=== PATIENT | female | born 1990 | race Caucasian/White ===

== ENCOUNTER 2016-07-08 00:01 | Emergency (ER) | payer BC ==
--- NOTE | 2016-07-08 00:48 | ED CLINICAL REPORT ---
Clinical Report - Physicians/Mid Levels [facility] [address] [place] [address] 07/08/2016 0:02 Patient: GRETCHEN RUBY Time Seen: 00:17. Arrived- By private vehicle. Historian- patient. HISTORY OF PRESENT ILLNESS Chief Complaint: BACK PAIN. It is described as being severe and in the area of the lower lumbar spine and radiating to the left lower extremity. The quality is noted to be aching, "pain" and similar to prior episodes. Onset- about 10 days ago and it is still present. It was abrupt in onset and has been constant. No bladder dysfunction, bowel dysfunction, sensory loss or motor loss. Patient denies a recent injury. Similar symptoms previously: Evaluation/treatment: x-rays and CT. Recent medical care: The patient was seen recently at another facility in a clinic. Seen for similar symptoms. Diagnosis: back pain. ( she said that she had plain x-rays and CT scan done at the [facility] and these were reportedly negative this past week.). REVIEW OF SYSTEMS No chills, fever, sweats, calf pain or chest pain. No cough, difficulty breathing, pedal edema, palpitations or abdominal pain. No constipation, diarrhea, nausea, vomiting or urinary problems. All systems otherwise negative, except as recorded above. PAST HISTORY Problems: Diabetes Mellitus. Atypical Chest Pain. Abnormal Liver Function Test. Chest Wall Pain. Additional Surgeries: Adenoidectomy. Back Surgery. Tonsillectomy. Tympanostomy Tubes. Medications: MetFORMIN HCl Oral. Hydrocodone-Acetaminophen Oral (has 2 tabs left). PredniSONE Oral (finished yesterday). 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 Methocarbamol Oral. Allergies: None. SOCIAL HISTORY Never smoker. Occasional alcohol use. No drug use. FAMILY HISTORY Denies family medical history. ADDITIONAL NOTES The nursing notes have been reviewed. PHYSICAL EXAM Vital Signs: 07/08/2016 00:11 BP: 154/94. HR: 95. RR: 16. O2 saturation: 99%. Temp: 98.4 F. Pain level now: 11/16. Have been reviewed. Appearance: Appears to be in pain. She is morbidly obese. Eyes: Pupils equal, round and reactive to light. ENT: Pharynx normal. Neck: Normal inspection. Neck nontender. No muscle spasm in the neck. Painless ROM. No vertebral tenderness. CVS: Heart sounds normal. Pulses normal. Respiratory: No respiratory distress. Breath sounds normal. Abdomen: No visible injury. Soft and nontender. Bowel sounds normal. No organomegaly. No mass. Back: Muscle spasm of the back. Severely limited ROM in the back- in the lumbar spine: decreased flexion, extension, right lateral bending, left lateral bending and rotation to the right and left. No vertebral point tenderness or CVA tenderness. (Well-healed lumbar surgical scar). Skin: Skin warm and dry. Normal skin color. Normal skin turgor. Extremities: Extremities exhibit normal ROM. Extremities nontender. No calf tenderness. Neuro: No motor deficit. No sensory deficit. PROGRESS AND PROCEDURES Course of Care: Patient is stable. Patient/family counseled. Old medical records ordered. Old records unavailable. Disposition: Discharged. Condition: stable. CLINICAL IMPRESSION Nontraumatic lumbar back pain. INSTRUCTIONS No driving or operating machinery while taking medication. No lifting greater than 5 lbs, no bending or stooping or no prolonged sitting. (Talk with your doctor about whether or not you would benefit from an MRI as discussed). Your Current Medications: STOP TAKING THE FOLLOWING MEDICATIONS: Hydrocodone-Acetaminophen Oral : has 2 tabs left. Methocarbamol Oral. CONTINUE TAKING THE FOLLOWING MEDICATIONS: Ibuprofen Oral : Tablet 800 mg, Last: 6.5hrs TESTING TECH. MetFORMIN HCl Oral. Prescription Medications: Valium 5 mg: Take 1 tablet orally every 8 hours as needed for muscle spasm. Dispense fifteen (15). No refills. Substitution is permissible. Follow-up: Follow up with your doctor tomorrow. Understanding of the discharge instructions verbalized by patient. (Electronically signed by Henrique Puga MD 07/08/2016 1:20)
--- NOTE | 2016-07-08 00:48 | ED NURSING NOTES ---
Clinical Report - Nurses [facility] [address] [place] [address] 07/08/2016 0:02 Patient: GRETCHEN RUBY TRIAGE Triage time 00:13. Chief Complaint: BACK PAIN. --00:19 Dipti Latham R.N. 00:11 07/08/16. BP: 154/94. HR: 95. RR: 16. O2 saturation: 99%. Temp: 98.4 F. Pain level now: 11/16. --00:19 Dipti Latham R.N. Weight: 122.9 kg stated. Height/Length: 70 inches Per Patient. BMI: 38.9. --00:17 Dipti Latham R.N. Medications Methocarbamol Oral. --00:15 Dipti Latham R.N. 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 --00:15 Dipti Latham R.N. PredniSONE Oral (finished yesterday). --00:15 Dipti Latham R.N. Hydrocodone-Acetaminophen Oral (has 2 tabs left). --00:16 Dipti Latham R.N. MetFORMIN HCl Oral. --00:16 Dipti Latham R.N. The following entry was struck and corrected by Dipti Latham R.N., 00:31 (07/08/16) Reason for correction - other(correction). <<STRICKEN ENTRY-- Ibuprofen Oral (Tablet 800 mg). --00:15 Dipti Latham R.N. --END STRIKE>>. Allergies None. --00:17 Dipti Latham R.N. History Arrived by private vehicle. Historian: patient. Unaccompanied. Primary physician (Reuben Mcginnis). ( was seen last night and one week ago for same issue. Xray and CT done yesterday. pt told if no improvement, to return.). Onset. (about 1 1/2 weeks ago). She has had trouble walking. No history of recent trauma. SOCIAL HX: Never smoker. Occasional alcohol use. No drug use. --00:19 Dipti Latham R.N. PROBLEMS: Diabetes Mellitus. Abnormal Liver Function Test. --00:18 Dipti Latham R.N. ADDITIONAL SURGERIES: Adenoidectomy. Tonsillectomy. Tympanostomy Tubes. --00:18 Dipti Latham R.N. Back Surgery. --00:18 Dipti Latham R.N. PHYSICAL ASSESSMENT To room via wheelchair. GENERAL / NEURO / PSYCH: Alert. Oriented X 4. Appears in no acute distress. RESPIRATORY: Respirations not labored. CVS: Capillary refill less than 2 seconds. --00:19 Dipti Latham R.N. NURSING PROGRESS NOTES Head of bed elevated. Two patient identifiers checked. Call light placed in reach. Side rails up x 1. Bed placed in lowest position. Brakes of bed on. --00: Dipti Latham R.N. Patient ready for evaluation- chart flagged. --00:19 Dipti Latham R.N. 00:30 07/08/2016 Toradol (Ketorolac Tromethamine) IM 60 mg given. Given in the left ventral gluteus. Allergies verified and confirmed 5 rights. --00:30 Dipti Latham R.N. 00:58 07/08/2016 Toradol IM Response: no adverse reaction symptoms have improved the patient feels better. --01:13 Nicole Le R.N. DISPOSITION / DISCHARGE Departure time: 0110 AM. Condition at departure: stable. The goals identified in the patient's plan of care were met. No learning barriers present. Discharge instructions provided and reviewed with the patient. Reviewed warnings (lifting and side effects of valium). Reviewed medication(s) side effects, precautions, dosing and course information. Prescription(s) given to the patient. Reviewed need for increased fluid intake. Activity restrictions (light lifting and rest) reviewed. Work note given. Verbalized understanding. Written instructions provided in Mauritian. ( pt offered a valium before leaving since was here to drive her, refused "afraid, rather be home and take it". All discharge instructions reviewed and all concerns addressed. VSS). The patient was discharged by the physician. She was discharged home and accompanied by spouse. She left the Emergency Department ambulatory and via private vehicle. Spouse driving. FALL RISK ASSESSMENT: Fall risk assessment completed. No fall risk identified. TELMA COMA SCORE: Telma Coma Scale: 15- eyes open spontaneously (4); best verbal response- oriented x 4 (5); best motor response- obeys commands (6). --01:13 Nicole Le R.N. 01:09 07/08/16. BP: 115/82 (regular adult cuff) taken on the left arm, via an automated monitor, while lying. HR: 78. RR: 16 (regular and unlabored). O2 saturation: 98% on room air. Temp: 98.1 F (oral). Pain level now: 11/16. --01:13 Nicole Le R.N. Locked/Released at 07/08/2016 1:14 by Nicole Le R.N.
--- NOTE | 2016-07-08 00:48 | ED CLINICAL REPORT ---
Clinical Report - Physicians/Mid Levels [facility] [address] [place] [address] 07/08/2016 0:02 Patient: GRETCHEN RUBY Time Seen: 00:17. Arrived- By private vehicle. Historian- patient. HISTORY OF PRESENT ILLNESS Chief Complaint: BACK PAIN. It is described as being severe and in the area of the lower lumbar spine and radiating to the left lower extremity. The quality is noted to be aching, "pain" and similar to prior episodes. Onset- about 10 days ago and it is still present. It was abrupt in onset and has been constant. No bladder dysfunction, bowel dysfunction, sensory loss or motor loss. Patient denies a recent injury. Similar symptoms previously: Evaluation/treatment: x-rays and CT. Recent medical care: The patient was seen recently at another facility in a clinic. Seen for similar symptoms. Diagnosis: back pain. ( she said that she had plain x-rays and CT scan done at the [facility] and these were reportedly negative this past week.). REVIEW OF SYSTEMS No chills, fever, sweats, calf pain or chest pain. No cough, difficulty breathing, pedal edema, palpitations or abdominal pain. No constipation, diarrhea, nausea, vomiting or urinary problems. All systems otherwise negative, except as recorded above. PAST HISTORY Problems: Diabetes Mellitus. Atypical Chest Pain. Abnormal Liver Function Test. Chest Wall Pain. Additional Surgeries: Adenoidectomy. Back Surgery. Tonsillectomy. Tympanostomy Tubes. Medications: MetFORMIN HCl Oral. Hydrocodone-Acetaminophen Oral (has 2 tabs left). PredniSONE Oral (finished yesterday). 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 Methocarbamol Oral. Allergies: None. SOCIAL HISTORY Never smoker. Occasional alcohol use. No drug use. FAMILY HISTORY Denies family medical history. ADDITIONAL NOTES The nursing notes have been reviewed. PHYSICAL EXAM Vital Signs: 07/08/2016 00:11 BP: 154/94. HR: 95. RR: 16. O2 saturation: 99%. Temp: 98.4 F. Pain level now: 11/16. Have been reviewed. Appearance: Appears to be in pain. She is morbidly obese. Eyes: Pupils equal, round and reactive to light. ENT: Pharynx normal. Neck: Normal inspection. Neck nontender. No muscle spasm in the neck. Painless ROM. No vertebral tenderness. CVS: Heart sounds normal. Pulses normal. Respiratory: No respiratory distress. Breath sounds normal. Abdomen: No visible injury. Soft and nontender. Bowel sounds normal. No organomegaly. No mass. Back: Muscle spasm of the back. Severely limited ROM in the back- in the lumbar spine: decreased flexion, extension, right lateral bending, left lateral bending and rotation to the right and left. No vertebral point tenderness or CVA tenderness. (Well-healed lumbar surgical scar). Skin: Skin warm and dry. Normal skin color. Normal skin turgor. Extremities: Extremities exhibit normal ROM. Extremities nontender. No calf tenderness. Neuro: No motor deficit. No sensory deficit. PROGRESS AND PROCEDURES Course of Care: Patient is stable. Patient/family counseled. Old medical records ordered. Old records unavailable. Disposition: Discharged. Condition: stable. CLINICAL IMPRESSION Nontraumatic lumbar back pain. INSTRUCTIONS No driving or operating machinery while taking medication. No lifting greater than 5 lbs, no bending or stooping or no prolonged sitting. (Talk with your doctor about whether or not you would benefit from an MRI as discussed). Your Current Medications: STOP TAKING THE FOLLOWING MEDICATIONS: Hydrocodone-Acetaminophen Oral : has 2 tabs left. Methocarbamol Oral. 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 MetFORMIN HCl Oral. Prescription Medications: Valium 5 mg: Take 1 tablet orally every 8 hours as needed for muscle spasm. Dispense fifteen (15). No refills. Substitution is permissible. Follow-up: Follow up with your doctor tomorrow. Understanding of the discharge instructions verbalized by patient. (Electronically signed by Henrique Puga MD 07/08/2016 1:20)
--- NOTE | 2016-07-08 00:48 | ED NURSING NOTES ---
Clinical Report - Nurses [facility] [address] [place] [address] 07/08/2016 0:02 Patient: GRETCHEN RUBY TRIAGE Triage time 00:13. Chief Complaint: BACK PAIN. --00:19 Dipti Latham R.N. 00:11 07/08/16. BP: 154/94. HR: 95. RR: 16. O2 saturation: 99%. Temp: 98.4 F. Pain level now: 11/16. --00:19 Dipti Latham R.N. Weight: 122.9 kg stated. Height/Length: 70 inches Per Patient. BMI: 38.9. --00:17 Dipti Latham R.N. Medications Methocarbamol Oral. --00:15 Dipti Latham R.N. 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 --00:15 Dipti Latham R.N. PredniSONE Oral (finished yesterday). --00:15 Dipti Latham R.N. Hydrocodone-Acetaminophen Oral (has 2 tabs left). --00:16 Dipti Latham R.N. MetFORMIN HCl Oral. --00:16 Dipti Latham R.N. The following entry was struck and corrected by Dipti Latham R.N., 00:31 (07/08/16) Reason for correction - other(correction). <<STRICKEN ENTRY-- Ibuprofen Oral (Tablet 800 mg). --00:15 Dipti Latham R.N. --END STRIKE>>. Allergies None. --00:17 Dipti Latham R.N. History Arrived by private vehicle. Historian: patient. Unaccompanied. Primary physician (Reuben Mcginnis). ( was seen last night and one week ago for same issue. Xray and CT done yesterday. pt told if no improvement, to return.). Onset. (about 1 1/2 weeks ago). She has had trouble walking. No history of recent trauma. SOCIAL HX: Never smoker. Occasional alcohol use. No drug use. --00:19 Dipti Latham R.N. PROBLEMS: Diabetes Mellitus. Abnormal Liver Function Test. --00:18 Dipti Latham R.N. ADDITIONAL SURGERIES: Adenoidectomy. Tonsillectomy. Tympanostomy Tubes. --00:18 Dipti Latham R.N. Back Surgery. --00:18 Dipti Latham R.N. PHYSICAL ASSESSMENT To room via wheelchair. GENERAL / NEURO / PSYCH: Alert. Oriented X 4. Appears in no acute distress. RESPIRATORY: Respirations not labored. CVS: Capillary refill less than 2 seconds. --00:19 Dipti Latham R.N. NURSING PROGRESS NOTES Head of bed elevated. Two patient identifiers checked. Call light placed in reach. Side rails up x 1. Bed placed in lowest position. Brakes of bed on. --00: Dipti Latham R.N. Patient ready for evaluation- chart flagged. --00:19 Dipti Latham R.N. 00:30 07/08/2016 Toradol (Ketorolac Tromethamine) IM 60 mg given. Given in the left ventral gluteus. Allergies verified and confirmed 5 rights. --00:30 Dipti Latham R.N. 00:58 07/08/2016 Toradol IM Response: no adverse reaction symptoms have improved the patient feels better. --01:13 Nicole Le R.N. DISPOSITION / DISCHARGE Departure time: 0110 AM. Condition at departure: stable. The goals identified in the patient's plan of care were met. No learning barriers present. Discharge instructions provided and reviewed with the patient. Reviewed warnings (lifting and side effects of valium). Reviewed medication(s) side effects, precautions, dosing and course information. Prescription(s) given to the patient. Reviewed need for increased fluid intake. Activity restrictions (light lifting and rest) reviewed. Work note given. Verbalized understanding. Written instructions provided in Chinese. ( pt offered a valium before leaving since was here to drive her, refused "afraid, rather be home and take it". All discharge instructions reviewed and all concerns addressed. VSS). The patient was discharged by the physician. She was discharged home and accompanied by spouse. She left the Emergency Department ambulatory and via private vehicle. Spouse driving. FALL RISK ASSESSMENT: Fall risk assessment completed. No fall risk identified. TELMA COMA SCORE: Telma Coma Scale: 15- eyes open spontaneously (4); best verbal response- oriented x 4 (5); best motor response- obeys commands (6). --01:13 Nicole Le R.N. 01:09 07/08/16. BP: 115/82 (regular adult cuff) taken on the left arm, via an automated monitor, while lying. HR: 78. RR: 16 (regular and unlabored). O2 saturation: 98% on room air. Temp: 98.1 F (oral). Pain level now: 11/16. --01:13 Nicole Le R.N. Locked/Released at 07/08/2016 1:14 by Nicole Le R.N.
--- NOTE | 2016-07-08 00:48 | ED ORDER SUMMARY ---
..... Patient: GRETCHEN RUBY OrderSheet [facility] VisitID: [id number] [address] [place] [address] 26y, F Registration Date/Time: 07/08/2016 ORDER SHEET Weight: 122.9 kg (stated) Allergies: None GENERAL ORDERS: MEDICATION ORDERS: Toradol IM 60 mg (NOW) (00:30 07/08/2016 Parth R.NTahmina verbal order read back to Marly SIMMONS) (0:30 RCsarah R.N.) IV FLUIDS: ORDER SHEET NOTES: [Electronically signed by Nicole Le R.N. (01:14 07/08/2016)] [Electronically signed by Henrique Puga MD (01:20 07/08/2016)] [Electronically locked/signed by Nicole Le R.N. (:14 07/08/2016)]
--- NOTE | 2016-07-08 00:48 | ED ORDER SUMMARY ---
..... Patient: GRETCHEN RUBY OrderSheet [facility] VisitID: [id number] [address] [place] [address] 26y, F Registration Date/Time: 07/08/2016 ORDER SHEET Weight: 122.9 kg (stated) Allergies: None GENERAL ORDERS: MEDICATION ORDERS: Toradol IM 60 mg (NOW) (00:30 07/08/2016 Parth R.NTahmina verbal order read back to Marly SIMMONS) (0:30 RCsarah R.N.) IV FLUIDS: ORDER SHEET NOTES: [Electronically signed by Nicole Le R.N. (01:14 07/08/2016)] [Electronically signed by Henrique Puga MD (01:20 07/08/2016)] [Electronically locked/signed by Nicole Le R.N. (:14 07/08/2016)]
--- NOTE | 2016-07-08 01:20 | ED MAR SUMMARY ---
..... Medication Administration Record [facility] [address] [place] [address] Patient: GRETCHEN RUBY Visit ID: [id number] 26y, F Weight: 122.9 kg Height/Length: 70 in BMI: 38.9 ALLERGIES: None Given 00:30 07/08/2016 Dipti Latham R.N. Medication Administered: TORADOL [IM] (KETOROLAC TROMETHAMINE), Dose: 60 mg IM. Medication Ordered: Toradol IM 60 mg (NOW).
--- NOTE | 2016-07-08 01:20 | ED MAR SUMMARY ---
..... Medication Administration Record [facility] [address] [place] [address] Patient: GRETCHEN RUBY Visit ID: [id number] 26y, F Weight: 122.9 kg Height/Length: 70 in BMI: 38.9 ALLERGIES: None Given 00:30 07/08/2016 Dipti Latham R.N. Medication Administered: TORADOL [IM] (KETOROLAC TROMETHAMINE), Dose: 60 mg IM. Medication Ordered: Toradol IM 60 mg (NOW).
--- NOTE | 2016-07-08 01:20 | ED DISCHARGE INSTRUCTIONS ---
Patient: GRETCHEN RUBY General Instructions [facility] VisitID: [id number] [address] [place] [address] 26y, F Registration Date/Time: 07/08/2016 Nontraumatic lumbar back pain. INSTRUCTIONS No driving or operating machinery while taking medication. No lifting greater than 5 lbs, no bending or stooping or no prolonged sitting. (Talk with your doctor about whether or not you would benefit from an MRI as discussed). Your Current Medications: STOP TAKING THE FOLLOWING MEDICATIONS: Hydrocodone-Acetaminophen Oral : has 2 tabs left. Methocarbamol Oral. 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 MetFORMIN HCl Oral. Prescription Medications: Valium 5 mg: Take 1 tablet orally every 8 hours as needed for muscle spasm. Dispense fifteen (15). No refills. Substitution is permissible. Follow-up: Follow up with your doctor tomorrow. Understanding of the discharge instructions verbalized by patient. ADDITIONAL INFORMATION Sciatica Sciatica ("Lumbar Radiculopathy") causes a pain that spreads from the lower back down into the buttock, hip and leg. Sometimes leg pain can occur without any back pain. Sciatica is due to irritation or pressure on a spinal nerve as it comes out of the spinal canal. This is most often due to a bulge or rupture of a nearby spinal disk (the cartilage cushion between each spinal bone), which presses on a nearby nerve. Other causes include spinal stenosis (narrowing of the spinal canal) and spasm of the pyriform muscle (a muscle in the buttocks that the sciatic nerve passes through). Sciatica may begin after a sudden twisting/bending force (such as in a car accident), or sometimes after a simple awkward movement. In either case, muscle spasm is commonly present and contributes to the pain. The diagnosis of sciatica is made from the symptoms and physical exam. Unless you had a physical injury (such as a car accident or fall), X-rays are usually not ordered for the initial evaluation of sciatica because the nerves and disks cannot be seen on an x-ray. If signs of a compressed nerve are present (for example, loss of tendon reflex or strength in the leg), an MRI (magnetic resonance imaging) scan will need to be scheduled as an outpatient. Most sciatica (80-90%) gets better with medicine, exercise, physical therapy. If symptoms continue after at least three months of medical treatment, surgery may be considered. Home Care: You may need to stay in bed the first few days. But, as soon as possible, begin sitting or walking to avoid problems with prolonged bed rest. When in bed, try to find a position of comfort. A firm mattress is best. Try lying flat on your back with pillows under your knees. You can also try lying on your side with your knees bent up towards your chest and a pillow between your knees. Avoid prolonged sitting. This puts more stress on the lower back than standing or walking. Some persons find relief with heat (hot shower, hot bath or heating pad) and massage, while others prefer cold packs (crushed or cubed ice in a plastic bag, wrapped in a towel). Try both and use the method that feels best for 20 minutes several times a day. You may use acetaminophen (Tylenol) or ibuprofen (Motrin, Advil) to control pain, unless another pain medicine was prescribed. [ NOTE: If you have chronic liver or kidney disease or ever had a stomach ulcer or GI bleeding, talk with your doctor before using these medicines.] Be aware of safe lifting methods and do not lift anything over 15 pounds until all the pain is gone. Follow Up with your doctor or this facility if your symptoms do not start to improve after one week. Physical therapy or further testing may be needed. [NOTE: If X-rays were taken, they will be reviewed by a radiologist. You will be notified of any new findings that may affect your care.] Get Prompt Medical Attention if any of the following occur: Pain becomes worse, not controlled by the prescribed medicine Weakness or numbness in one or both legs Numbness in the groin, genital area Loss of bowel or bladder control Degenerative Disk Disease Spinal disks are gel-filled cushions between the bones of the spine (vertebrae). The disks act like shock absorbers. Over time, the disks may break down. This disorder is called degenerative disk disease (DDD). DDD can affect the neck or back. It is one of the most common causes of low back pain. It is the leading cause of disability in people under age 45 in the [place]. The pain usually remains localized to the lower back or neck. Muscle spasm is often present and adds to the pain. Disk degeneration is a natural part of aging, although it does not cause pain in most persons. It may also occur as a result of repeated minor injuries due to daily activities, sports, or accidents. It may lead to osteoarthritis of the spine. Back pain related to disk disease may come and go or become chronic and last for months or years. If the disk bulges or ruptures (also called slipped disk or herniated disk), it can put pressure on a nearby spinal nerve and cause neck or back pain that spreads down one arm or leg. X-rays or MRI (magnetic resonance imaging) scan may aid in the diagnosis. For acute pain, treatment consists of anti-inflammatory drugs, muscle relaxants, rest, ice, or heat. Narcotic pain medicines may be needed for short-term treatment of sudden worsening of pain. Due to their addictive potential, narcotics are not advised for long-term pain management. Other types of medicines are preferred. Surgery is usually not used to treat this condition unless there is a complication (such as nerve root compression). Home Care: FOR NECK PAIN: Use a comfortable pillow that supports the head and keeps the spine in a neutral position. The head should not be tilted forward or backward. FOR BACK PAIN: Avoid prolonged sitting. This puts more stress on the lower back than standing or walking. Establishing a regular exercise program to strengthen the supporting muscles of the spine will make it easier to live with DDD. During the first2 days after a flare-up of your pain, apply anice pack to the painful area for 20 minutes every 2-4 hours. This will reduce swelling and pain.Heat (hot shower, hot bath, or heating pad) works well for muscle spasm. You can start with ice, then switch to heat after2 days. Some patients feel best alternating ice and heat treatments. Use the method that feelsbest to you. You may use acetaminophen (Tylenol) or ibuprofen (Motrin, Advil) to control pain, unless another pain medicine was prescribed. [NOTE: If you have chronic liver or kidney disease or ever had a stomach ulcer or GI bleeding, talk with your doctor before using these medicines.] Follow Up with your physician, or as directed by our staff. [NOTE: If x-rays, a CT scan or an MRI scan were taken, they will be reviewed by a radiologist. You will be notified of any new findings that may affect your care.] Return Promptly or contact your doctor if any of the following occur: Increasing back pain New weakness, numbness, or pain in one or both arms or legs Foot drop (foot drags when you walk) Loss of bowel or bladder control Numbness or tingling in the buttock or groin area Unexplained fever over 100.4F (38.0C) Diazepam Oral tablet What is this medicine? DIAZEPAM (dye AZ e lisa) is a benzodiazepine. It is used to treat anxiety and nervousness. It also can help treat alcohol withdrawal, relax muscles, and treat certain types of seizures. How should I use this medicine? Take this medicine by mouth with a glass of water. Follow the directions on the prescription label. If this medicine upsets your stomach, take it with food or milk. Take your doses at regular intervals. Do not take your medicine more often than directed. If you have been taking this medicine regularly for some time, do not suddenly stop taking it. You must gradually reduce the dose or you may get severe side effects. Ask your doctor or health child care supervisor for advice. Even after you stop taking this medicine it can still affect your body for several days. Talk to your fox raiser regarding the use of this medicine in children. Special care may be needed. What side effects may I notice from receiving this medicine? Side effects that you should report to your doctor or health child care supervisor as soon as possible: allergic reactions like skin rash, itching or hives, swelling of the face, lips, or tongue angry, confused, depressed, other mood changes breathing problems feeling faint or lightheaded, falls muscle cramps problems with balance, talking, walking restlessness tremors trouble passing urine or change in the amount of urine unusually weak or tired Side effects that usually do not require medical attention (report to your doctor or health child care supervisor if they continue or are bothersome): difficulty sleeping, nightmares dizziness, drowsiness, clumsiness, or unsteadiness, a hangover effect headache nausea, vomiting What may interact with this medicine? cimetidine grapefruit juice herbal or dietary supplements like kava kava, melatonin, Varna's Wort, or valerian medicines for anxiety or sleeping problems, like alprazolam, lorazepam, or triazolam medicines for depression, mental problems or psychiatric disturbances medicines for HIV infection or AIDS prescription pain medicines rifampin, rifapentine, or rifabutin some medicines for seizures like carbamazepine, phenobarbital, phenytoin, or primidone What if I miss a dose? If you miss a dose, take it as soon as you can. If it is almost time for your next dose, take only that dose. Do not take double or extra doses. Where should I keep my medicine? Keep out of the reach of children. This medicine can be abused. Keep your medicine in a safe place to protect it from theft. Do not share this medicine with anyone. Selling or giving away this medicine is dangerous and against the law. Store at room temperature between 15 and 30 degrees C (59 and 86 degrees F). Protect from light. Keep container tightly closed. Throw away any unused medicine after the expiration date. What should I tell my health care provider before I take this medicine? They need to know if you have any of these conditions an alcohol or drug abuse problem bipolar disorder, depression, psychosis or other mental health condition glaucoma kidney or liver disease lung or breathing disease myasthenia gravis Parkinson's disease seizures or a history of seizures suicidal thoughts an unusual or allergic reaction to diazepam, other benzodiazepines, foods, dyes, or preservatives or trying to get breast-feeding What should I watch for while using this medicine? Visit your doctor or health child care supervisor for regular checks on your progress. Your body can become dependent on this medicine. Ask your doctor or health child care supervisor if you still need to take it. You may get drowsy or dizzy. Do not drive, use machinery, or do anything that needs mental alertness until you know how this medicine affects you. To reduce the risk of dizzy and fainting spells, do not stand or sit up quickly, especially if you are an older patient. Alcohol may increase dizziness and drowsiness. Avoid alcoholic drinks. Do not treat yourself for coughs, colds or allergies without asking your doctor or health child care supervisor for advice. Some ingredients can increase possible side effects. You have been given the following additional information: Back Pain W/ Sciatica Degenerative Disk Disease Diazepam Oral tablet No driving or operating machinery while taking medication. No lifting greater than 5 lbs, no bending or stooping or no prolonged sitting. (Electronically signed by Henrique Puga MD 07/08/2016 1:20)
--- NOTE | 2016-07-08 01:20 | ED MED RECONCILIATION SUMMARY ---
Patient: GRETCHEN RUBY Medication Reconciliation Report [facility] VisitID: [id number] [address] [place] [address] 26y, F Registration Date/Time: 07/08/2016 Weight: 122.9 kg Height/Length: 70 in. 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 The following Medications were given to the patient in the Emergency Department: Toradol [IM] IM 60 mg, administered: 07/08/2016 12:30:00 AM The following Medications were prescribed to the patient: Valium 5 mg: Take 1 tablet orally every 8 hours as needed for muscle spasm. Dispense fifteen (15). No refills. Substitution is permissible. -- Henrique Puga MD
--- NOTE | 2016-07-08 01:20 | ED DISCHARGE INSTRUCTIONS ---
Patient: GRETCHEN RUBY General Instructions VisitID: [id number] [address] [place] [address] 26y, F Registration Date/Time: 07/08/2016 Nontraumatic lumbar back pain. INSTRUCTIONS No driving or operating machinery while taking medication. No lifting greater than 5 lbs, no bending or stooping or no prolonged sitting. (Talk with your doctor about whether or not you would benefit from an MRI as discussed). Your Current Medications: STOP TAKING THE FOLLOWING MEDICATIONS: Hydrocodone-Acetaminophen Oral : has 2 tabs left. Methocarbamol Oral. 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 MetFORMIN HCl Oral. Prescription Medications: Valium 5 mg: Take 1 tablet orally every 8 hours as needed for muscle spasm. Dispense fifteen (15). No refills. Substitution is permissible. Follow-up: Follow up with your doctor tomorrow. Understanding of the discharge instructions verbalized by patient. ADDITIONAL INFORMATION Sciatica Sciatica ("Lumbar Radiculopathy") causes a pain that spreads from the lower back down into the buttock, hip and leg. Sometimes leg pain can occur without any back pain. Sciatica is due to irritation or pressure on a spinal nerve as it comes out of the spinal canal. This is most often due to a bulge or rupture of a nearby spinal disk (the cartilage cushion between each spinal bone), which presses on a nearby nerve. Other causes include spinal stenosis (narrowing of the spinal canal) and spasm of the pyriform muscle (a muscle in the buttocks that the sciatic nerve passes through). Sciatica may begin after a sudden twisting/bending force (such as in a car accident), or sometimes after a simple awkward movement. In either case, muscle spasm is commonly present and contributes to the pain. The diagnosis of sciatica is made from the symptoms and physical exam. Unless you had a physical injury (such as a car accident or fall), X-rays are usually not ordered for the initial evaluation of sciatica because the nerves and disks cannot be seen on an x-ray. If signs of a compressed nerve are present (for example, loss of tendon reflex or strength in the leg), an MRI (magnetic resonance imaging) scan will need to be scheduled as an outpatient. Most sciatica (80-90%) gets better with medicine, exercise, physical therapy. If symptoms continue after at least three months of medical treatment, surgery may be considered. Home Care: You may need to stay in bed the first few days. But, as soon as possible, begin sitting or walking to avoid problems with prolonged bed rest. When in bed, try to find a position of comfort. A firm mattress is best. Try lying flat on your back with pillows under your knees. You can also try lying on your side with your knees bent up towards your chest and a pillow between your knees. Avoid prolonged sitting. This puts more stress on the lower back than standing or walking. Some persons find relief with heat (hot shower, hot bath or heating pad) and massage, while others prefer cold packs (crushed or cubed ice in a plastic bag, wrapped in a towel). Try both and use the method that feels best for 20 minutes several times a day. You may use acetaminophen (Tylenol) or ibuprofen (Motrin, Advil) to control pain, unless another pain medicine was prescribed. [ NOTE: If you have chronic liver or kidney disease or ever had a stomach ulcer or GI bleeding, talk with your doctor before using these medicines.] Be aware of safe lifting methods and do not lift anything over 15 pounds until all the pain is gone. Follow Up with your doctor or this facility if your symptoms do not start to improve after one week. Physical therapy or further testing may be needed. [NOTE: If X-rays were taken, they will be reviewed by a radiologist. You will be notified of any new findings that may affect your care.] Get Prompt Medical Attention if any of the following occur: Pain becomes worse, not controlled by the prescribed medicine Weakness or numbness in one or both legs Numbness in the groin, genital area Loss of bowel or bladder control Degenerative Disk Disease Spinal disks are gel-filled cushions between the bones of the spine (vertebrae). The disks act like shock absorbers. Over time, the disks may break down. This disorder is called degenerative disk disease (DDD). DDD can affect the neck or back. It is one of the most common causes of low back pain. It is the leading cause of disability in people under age 45 in the [place]. The pain usually remains localized to the lower back or neck. Muscle spasm is often present and adds to the pain. Disk degeneration is a natural part of aging, although it does not cause pain in most persons. It may also occur as a result of repeated minor injuries due to daily activities, sports, or accidents. It may lead to osteoarthritis of the spine. Back pain related to disk disease may come and go or become chronic and last for months or years. If the disk bulges or ruptures (also called slipped disk or herniated disk), it can put pressure on a nearby spinal nerve and cause neck or back pain that spreads down one arm or leg. X-rays or MRI (magnetic resonance imaging) scan may aid in the diagnosis. For acute pain, treatment consists of anti-inflammatory drugs, muscle relaxants, rest, ice, or heat. Narcotic pain medicines may be needed for short-term treatment of sudden worsening of pain. Due to their addictive potential, narcotics are not advised for long-term pain management. Other types of medicines are preferred. Surgery is usually not used to treat this condition unless there is a complication (such as nerve root compression). Home Care: FOR NECK PAIN: Use a comfortable pillow that supports the head and keeps the spine in a neutral position. The head should not be tilted forward or backward. FOR BACK PAIN: Avoid prolonged sitting. This puts more stress on the lower back than standing or walking. Establishing a regular exercise program to strengthen the supporting muscles of the spine will make it easier to live with DDD. During the first2 days after a flare-up of your pain, apply anice pack to the painful area for 20 minutes every 2-4 hours. This will reduce swelling and pain.Heat (hot shower, hot bath, or heating pad) works well for muscle spasm. You can start with ice, then switch to heat after2 days. Some patients feel best alternating ice and heat treatments. Use the method that feelsbest to you. You may use acetaminophen (Tylenol) or ibuprofen (Motrin, Advil) to control pain, unless another pain medicine was prescribed. [NOTE: If you have chronic liver or kidney disease or ever had a stomach ulcer or GI bleeding, talk with your doctor before using these medicines.] Follow Up with your physician, or as directed by our staff. [NOTE: If x-rays, a CT scan or an MRI scan were taken, they will be reviewed by a radiologist. You will be notified of any new findings that may affect your care.] Return Promptly or contact your doctor if any of the following occur: Increasing back pain New weakness, numbness, or pain in one or both arms or legs Foot drop (foot drags when you walk) Loss of bowel or bladder control Numbness or tingling in the buttock or groin area Unexplained fever over 100.4F (38.0C) Diazepam Oral tablet What is this medicine? DIAZEPAM (dye AZ e lisa) is a benzodiazepine. It is used to treat anxiety and nervousness. It also can help treat alcohol withdrawal, relax muscles, and treat certain types of seizures. How should I use this medicine? Take this medicine by mouth with a glass of water. Follow the directions on the prescription label. If this medicine upsets your stomach, take it with food or milk. Take your doses at regular intervals. Do not take your medicine more often than directed. If you have been taking this medicine regularly for some time, do not suddenly stop taking it. You must gradually reduce the dose or you may get severe side effects. Ask your doctor or health tire care manager for advice. Even after you stop taking this medicine it can still affect your body for several days. Talk to your mop maker regarding the use of this medicine in children. Special care may be needed. What side effects may I notice from receiving this medicine? Side effects that you should report to your doctor or health tire care manager as soon as possible: allergic reactions like skin rash, itching or hives, swelling of the face, lips, or tongue angry, confused, depressed, other mood changes breathing problems feeling faint or lightheaded, falls muscle cramps problems with balance, talking, walking restlessness tremors trouble passing urine or change in the amount of urine unusually weak or tired Side effects that usually do not require medical attention (report to your doctor or health tire care manager if they continue or are bothersome): difficulty sleeping, nightmares dizziness, drowsiness, clumsiness, or unsteadiness, a hangover effect headache nausea, vomiting What may interact with this medicine? cimetidine grapefruit juice herbal or dietary supplements like kava kava, melatonin, [place]'s Wort, or valerian medicines for anxiety or sleeping problems, like alprazolam, lorazepam, or triazolam medicines for depression, mental problems or psychiatric disturbances medicines for HIV infection or AIDS prescription pain medicines rifampin, rifapentine, or rifabutin some medicines for seizures like carbamazepine, phenobarbital, phenytoin, or primidone What if I miss a dose? If you miss a dose, take it as soon as you can. If it is almost time for your next dose, take only that dose. Do not take double or extra doses. Where should I keep my medicine? Keep out of the reach of children. This medicine can be abused. Keep your medicine in a safe place to protect it from theft. Do not share this medicine with anyone. Selling or giving away this medicine is dangerous and against the law. Store at room temperature between 15 and 30 degrees C (59 and 86 degrees F). Protect from light. Keep container tightly closed. Throw away any unused medicine after the expiration date. What should I tell my health care provider before I take this medicine? They need to know if you have any of these conditions an alcohol or drug abuse problem bipolar disorder, depression, psychosis or other mental health condition glaucoma kidney or liver disease lung or breathing disease myasthenia gravis Parkinson's disease seizures or a history of seizures suicidal thoughts an unusual or allergic reaction to diazepam, other benzodiazepines, foods, dyes, or preservatives or trying to get breast-feeding What should I watch for while using this medicine? Visit your doctor or health tire care manager for regular checks on your progress. Your body can become dependent on this medicine. Ask your doctor or health tire care manager if you still need to take it. You may get drowsy or dizzy. Do not drive, use machinery, or do anything that needs mental alertness until you know how this medicine affects you. To reduce the risk of dizzy and fainting spells, do not stand or sit up quickly, especially if you are an older patient. Alcohol may increase dizziness and drowsiness. Avoid alcoholic drinks. Do not treat yourself for coughs, colds or allergies without asking your doctor or health tire care manager for advice. Some ingredients can increase possible side effects. You have been given the following additional information: Back Pain W/ Sciatica Degenerative Disk Disease Diazepam Oral tablet No driving or operating machinery while taking medication. No lifting greater than 5 lbs, no bending or stooping or no prolonged sitting. (Electronically signed by Henrique Puga MD 07/08/2016 1:20)
--- NOTE | 2016-07-08 01:20 | ED MED RECONCILIATION SUMMARY ---
Patient: GRETCHEN RUBY Medication Reconciliation Report [facility] VisitID: [id number] [address] [place] [address] 26y, F Registration Date/Time: 07/08/2016 Weight: 122.9 kg Height/Length: 70 in. 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 The following Medications were given to the patient in the Emergency Department: Toradol [IM] IM 60 mg, administered: 07/08/2016 12:30:00 AM The following Medications were prescribed to the patient: Valium 5 mg: Take 1 tablet orally every 8 hours as needed for muscle spasm. Dispense fifteen (15). No refills. Substitution is permissible. -- Henrique Puga MD
== END 2016-07-08 01:10 | disposition home or self-care (01) ==
LOC: ED SRH 00:01
DX: M54.5 Low back pain (principal); E11.9 Type 2 diabetes mellitus without complications; Z79.84 Long term (current) use of oral hypoglycemic drugs; Z79.1 Long term (current) use of non-steroidal anti-inflammatories (NSAID)